=== PATIENT | female | born 1930 | race Caucasian/White ===

== ENCOUNTER 2016-10-22 22:46 | Emergency (ER) | payer SELFPAY ==
[~2016-10-22] VITALS: Ht 157.5 cm; Wt 57.0 kg
[~2016-10-22 22:46] MED LIST: ALBU8.5H3 INH; ASPI-664 PO; ATEN50TA PO; AZIT250T94 PO; CLOP75TA27 PO; D-ME118S6 PO; DONE10TA7 PO; ISOS30TA5 PO; LANT3I SC; MECL-77 PO; NIT4 SL; OMEP20CA16 PO; ONDA4TAB35 PO; PRED10TA PO; SIMV20TA2 PO
[2016-10-22 22:53] VITALS: Ht 157.5 cm; Wt 57.0 kg
== END 2016-10-23 00:20 | disposition left against medical advice (07) ==
LOC: E/R 22:46
DX: Z53.21 Procedure and treatment not carried out due to patient leaving prior to being seen by health care provider (principal)
CPT/HCPCS: 82962